=== PATIENT | female | born 1965 | race Caucasian/White ===

== ENCOUNTER 2020-04-20 13:51 | Outpatient (CLI) | payer OTHER ==
[~2020-04-20 13:51] MED LIST: NABUMETONE500 MG PO; PERCOCET 5/3251 TAB PO
== END 2020-04-20 14:09 | disposition home or self-care (01) ==
LOC: MRI 13:51
PROVIDERS: ATTEND Orthopaedic Surgery
DX: M94.262 Chondromalacia, left knee (principal); M25.562 Pain in left knee; M25.561 Pain in right knee
CPT/HCPCS: 73718